=== PATIENT | female | born 1945 | race African-American/Black ===

== ENCOUNTER 2017-04-29 11:39 | Emergency (ER) | payer MEDICARE, MEDICAID ==
[~2017-04-29] VITALS: Ht 157.5 cm; Wt 70.0 kg
[~2017-04-29 11:39] MED LIST: ALBU5SOL6 IH; ALBUTEROL; ASPI-986 PO; COR3 PO; DIGO0.25 PO; DIGO125T82; FURO-151 PO; KLUD20 PO; LISI-604 PO; OMEP20CA10; P20 PO; POTA-9 PO; PRAV40TA58; SPIR25TA PO; SPIR25TA4; TIOT18CA3
[2017-04-29 13:29] LABS: BASOPHILS % 0.7 % (0.0-2.0); EOSINOPHILS % 1.1 % (0.0-5.0); HEMATOCRIT. 38.1 % (36.0-48.0); HEMOGLOBIN. 12.6 g/dL (12.0-16.0); LYMPHOCYTES % 19.7 % (20.0-50.0); MEAN CORPUSCULAR HEMOGLOBIN 29.7 pg (28.0-32.0); MEAN PLATELET VOLUME 9.9 fl (7.4-10.4); MONOCYTES % 8.3 % (2.0-8.0); NEUTROPHILS % 70.2 % (40.0-76.0); PLATELET 173 x1000/uL (130-400); RED BLOOD CELL COUNT 4.23 mill/uL (4.2-5.4); RED CELL DISTRIBUTION WIDTH 14.2 % (11.6-14.6)
[2017-04-29 13:44] LABS: TROPONIN I 0.06 ng/mL (0.00-0.04)
[2017-04-29 14:20] VITALS: BP 126/70
== END 2017-04-29 16:19 | disposition home or self-care (01) ==
LOC: ER 12:00
DX: I42.9 Cardiomyopathy, unspecified (principal); R42 Dizziness and giddiness; R53.1 Weakness; J44.9 Chronic obstructive pulmonary disease, unspecified; Z86.73 Personal history of transient ischemic attack (TIA), and cerebral infarction without residual deficits; Z88.2 Allergy status to sulfonamides; Z79.82 Long term (current) use of aspirin; Z86.74 Personal history of sudden cardiac arrest
CPT/HCPCS: 36415; 80048; 83880; 84484; 85025; 93005; 99285